=== PATIENT | female | born 1985 | race Caucasian/White ===

== ENCOUNTER 2017-12-05 10:12 | Inpatient (IN) | payer OTHER ==
[~2017-12-05] VITALS: Ht 160 cm; Wt 99.8 kg
[2017-12-05 10:46] LABS: ABSOLUTE BASOPHIL COUNT 0 /CUMM (0.0-0.2); ABSOLUTE EOSINOPHIL COUNT 0.1 /CUMM (0.0-0.7); ABSOLUTE GRANULOCYTE CT 6.4 /CUMM (1.4-6.5); ABSOLUTE LYMPH COUNT 1.8 /CUMM (1.2-3.4); ABSOLUTE MONOCYTE COUNT 0.6 /CUMM (0.10-0.60); BASOPHIL % 0.2 % (0.0-2.0); GRANULOCYTE % 71.4 % (42.2-75.2); HEMATOCRIT 33.7 % (37-47); MEAN CORPUSCULAR HGB 29.2 PG (27.0-31.0); MEAN CORPUSCULAR HGB CONC 33.4 G/DL (33.0-37.0); MEAN CORPUSCULAR VOLUME 87.3 FL (81.0-99.0); MEAN PLATELET VOLUME 8.1 FL (7.4-10.4); PLATELET COUNT 153 /CUMM (130-400); RBC DISTRIBUTION WIDTH 14.3 % (11.5-14.5); RED BLOOD CELL CT 3.86 /CUMM (4.20-5.40); WHITE BLOOD CELL COUNT 8.9 /CUMM (4.8-10.8)
--- NOTE | 2017-12-05 12:07 | History & Physical ---
General Information and HPI MD Statement: I have seen and personally examined KARIN LEVINE and documented this H&P. Source of Information: patient, old records Exam Limitations: no limitations History of Present Illness: The patient is a 32 year old at 40 weeks and 2 days gestation who presented with a chief complaint of elevated bp 148 / 80 in office, 1+ prot on udip, and frequent YEUNG. Pt w/ labile BPs last 2 wks. BP wnl upon presentation to CBC but upcr elevated 1.3. Recommendation made for IOL for pec without severe features. Pt and agree to plan. AP care c/b h/o depression, self d/c'd cymbalta 1st trim; b/l hip dysplasia - seeing ortho and chiro. GBS neg. 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 History: non-contributory Past Pregnancies Past Pregnancies: 1 Date of Delivery: 11/09/13 Gestational Age: 39 wks Length of Labor: 26 hrs Weight: 8#4 Type of Delivery: vaginal Anesthesia: epidural Place of Delivery: [facility] Complications: none Past Pregnancies: 2 Date of Delivery: 10/19/15 Gestational Age: 37+5 Length of Labor: 11 hrs Weight: 7#14 Type of Delivery: vaginal Anesthesia: epidural Place of Delivery: [place] Complications: none Medical History Gastrointestinal: GERD Musculoskeletal: b/l hip dysplasia Psychiatric: depression Surgical History Pertinent Surgical History: reconstructive lip surgery for hemangioma x 2 Past Family/Social History Psychosocial History Smoking Status: Never Smoked Exam & Diagnostic Data Last 24 Hrs of Vital Signs/I&O Intake & Output 12/05 1600 12/05 0800 12/05 0000 Intake Total Output Total Balance Patient 220 lb Weight Obstetric Exam Wgt Gained During : 34 lb Pelvimetry: adequate - tested to 8#4 Dilation (cm): 1 Effacement (%): 0 Station: -3 Membranes: intact Fluid: unknown Fundal Height (cm): 41 Multiple Gestation? No Contractions: rare Infant #1 - FHR Baseline: 130 Category: 1 Estimated Weight: 3600 gr Presentation: vtx Patient for Induction? Yes Domínguez Score Domínguez Score Response Value Cervix Position: mid-position 1 Cervix Consistency: medium 1 Cervix Effacement: 0-30% 0 Cervix Dilation: 1-2 cm 1 Cervix Station: -3 0 Total 3 Physical Exam: 113 / 70 nad abd soft nt gravid ext nt +1 b/l le ed Labs Blood Type & Rh: O pos Antibody Screen: neg Hct/Hgb & Platelets #1: 35.9 / 181 Hct/Hgb & Platelets #2: 10.8/ 35.8, 187 Rubella: imm VDRL #1: neg VDRL #2: neg HbsAg: neg HIV #1: neg HIV #2 neg 1 Hr P Group B Strep: neg Initial Ultrasound: 05/31/17 siup 13+3 Anatomy Ultrasound: 07/18/17 nl jaja Ultrasound for EFW: 11/28/17 39+2 7#7 Genetic Testin05/30/17 nl 1st trim screen, nl NT Last 24 Hrs of Labs/Vinnie: Laboratory Tests 12/05/17 1030: Estimated GFR > 60, Uric Acid 4.0, AST 20, ALT 27, Lactate Dehydrogenase 542, CBC w Diff NO MAN DIFF REQ, RBC 3.86 L, MCV 87.3, MCH 29.2, MCHC 33.4, RDW 14.3 , MPV 8.1, Gran % 71.4, Lymphocytes % 20.6, Monocytes % 6.8, Eosinophils % 1.0, Basophils % 0.2, Absolute Granulocytes 6.4, Absolute Lymphocytes 1.8, Absolute Monocytes 0.6, Absolute Eosinophils 0.1, Absolute Basophils 0 12/05/17 1020: Ur Random Creatinine 11.4, U Random Total Protein 17 H, Protein/Creatinin Ratio 1.4 H 12/05/17 1020: Urinalysis LIGHT H, Urine Color YEL, Urine Clarity CLEAR, Urine pH 7.0, Ur Specific [place] 1.010, Urine Protein NEG, Urine Ketones NEG, Urine Nitrite NEG, Urine Bilirubin NEG, Urine Urobilinogen 0.2, Ur Leukocyte Esterase TRACE H, Ur Microscopic SEDIMENT EXAMINED, Urine WBC RARE, Ur Epithelial Cells OCCAS, Urine Hemoglobin NEG, Urine Glucose NEG Assessment/Plan Assessment/Plan: 32yo @ 40+2 wks with labile BP's and elevated upcr, likely pec w/o severe features. and maternal status reassuring. Will Admit for labor induction. Pt and agree to plan. -Admit -miso #1 placed 1130a -monitoring -pt may ambulate -ANSVD As Ranked By This Provider Problem List: 1. Core Measures Venous Thromboembolism VTE Risk Factors / No Mechanical VTE Prophylaxis d/t Early Ambulation No VTE Pharm Prophylaxis d/t LowRisk-No Interven Req'd
--- NOTE | 2017-12-05 15:35 | PN- OBGYN ---
Surgical Brief Attending Note Brief Attending Note: pt w/ mild ctx, ambulating intermittently last 4 hours afeb 105/57 fht 130s moderate variability +acc no dec toco q 3-4 sve 3/long / -2, arom, light mec a/p P2 @ 40+2, iol for likely pec w/o severe features, s/p miso x 1, gbs neg s/p arom, light mec staining, and maternal status reassuring -cont monitoring -start pitocin per protocol if ctx space out
--- NOTE | 2017-12-05 16:58 | PN- OBGYN ---
Surgical Brief Attending Note Brief Attending Note: pt c/o increasing ctx, desires epidural v/ss fht 120s moderate variability +acc no dec toco q 2-4 sve /-2 -anesthesia for epidural -cont current mgmt
--- NOTE | 2017-12-05 20:59 | Labor & Delivery Summary ---
Delivery Summary Vaginal Delivery: Vaginal: spontaneous Episiotomy/Lacerations: Episiotomy/Lacerations: none Placenta: Placenta: spontanteous, normal, 3 vessel Anesthesia: block Apgars - 1 Min: 9 Apgars - 5 Min: 9 Additional Comments: Pt FD / +1 and pushing w/ epidural. Controlled of live male, apg 12/25. Head del over intact perineum from JOSE. Mouth and nose bulb suctioned. Body del w/o difficulty. Baby to mom's chest. Cord clamped and cut. Infant to Peds present for light mec. 3vc plac del spont intact. Fundus contracted. EBL 250cc. Pt tolerated well. Baby w/ mom.
[2017-12-05 22:01] VITALS: BP 119/68
[2017-12-06 08:14] LABS: ABSOLUTE BASOPHIL COUNT 0 /CUMM (0.0-0.2); ABSOLUTE EOSINOPHIL COUNT 0.1 /CUMM (0.0-0.7); ABSOLUTE GRANULOCYTE CT 7.5 /CUMM (1.4-6.5); ABSOLUTE LYMPH COUNT 2.3 /CUMM (1.2-3.4); ABSOLUTE MONOCYTE COUNT 0.9 /CUMM (0.10-0.60); BASOPHIL % 0.3 % (0.0-2.0); EOSINOPHIL % 0.6 % (0-5); GRANULOCYTE % 68.8 % (42.2-75.2); HEMATOCRIT 30.9 % (37-47); MEAN CORPUSCULAR HGB 29.8 PG (27.0-31.0); MEAN CORPUSCULAR HGB CONC 33.7 G/DL (33.0-37.0); MEAN CORPUSCULAR VOLUME 88.5 FL (81.0-99.0); MEAN PLATELET VOLUME 9.3 FL (7.4-10.4); PLATELET COUNT 142 /CUMM (130-400); RBC DISTRIBUTION WIDTH 14.6 % (11.5-14.5); RED BLOOD CELL CT 3.49 /CUMM (4.20-5.40); WHITE BLOOD CELL COUNT 10.9 /CUMM (4.8-10.8)
--- NOTE | 2017-12-06 10:43 | PN- OBGYN ---
Surgical Brief Attending Note Brief Attending Note: PPD 1 Feels fine, some cramping, lochia milder. going well. +void, ambulating, tolerating POs. afebrile, VS normal, UOP adequate Lips - moist, pink Neck - supple Breasts - soft, nonengorged Abd - soft, NT Fundus - firm, NT Perineum - intact, dry Extr - benign A: stable s/p , 3rd baby P: con't present management home in am most likely - Patient requests circumcision for her son "Jayson". Risks, benefits, purpose, and alternatives d/w pt., questions answered, and informed consent obtained. Per nursing, baby may be developing a low-grade temp, needs a bath, and needs to feed. Once those issues are resolved then the baby will be ready for circumcision. I am available anytime to do the procedure.
[2017-12-07] MEDS ORDERED: IBUPROFEN800 M1 PO (03:55)
--- NOTE | 2017-12-07 09:07 | PN- OBGYN ---
Surgical Brief Attending Note Brief Attending Note: PPD 2 Feels well. Anxious to go home. Both cramping and bleeding have improved - she would like to have Motrin at home. Bladder and bowel functionnormal BP 110/75 Mouth - mucous membranes pink and moist Neck - supple Breasts - engorged bilat., no tnederness Abd - soft, NT Fundus - firm, NT Back - no CVAT Perineum - intact, dry Extr - benign A: recovering well s/p NSVDP: discharge home on Motrin PRN and Cymbalta restart PNV daily while nursing to office in 6w for pelvic exam/BC plan
== END 2017-12-07 08:55 | DRG 775 ==
LOC: CBCO 10:12 → GNO 11:02
PROVIDERS: Obstetrics & Gynecology
PROC: 10E0XZZ Delivery of Products of Conception, External Approach (ICD-10-PCS; principal; 2017-12-05)
PROC: 3E0P7VZ Introduction of Hormone into Female Reproductive, Via Natural or Artificial Opening (ICD-10-PCS; principal; 2017-12-05)
PROC: 10907ZC Drainage of Amniotic Fluid, Therapeutic from Products of Conception, Via Natural or Artificial Opening (ICD-10-PCS; principal; 2017-12-05)
DX: O77.0 Labor and delivery complicated by meconium in amniotic fluid (principal); Z3A.40 40 weeks gestation of pregnancy; Z37.0 Single live birth; Z88.6 Allergy status to analgesic agent
CPT/HCPCS: GNOS; 36415; 81001; 82570; J7120